=== PATIENT | male | born 2000 | race Caucasian/White ===

== ENCOUNTER 2024-07-02 12:25 | Emergency (ER) | payer BC, MEDICAID ==
[~2024-07-02] VITALS: Ht 177.8 cm; Wt 70.0 kg
[2024-07-02 12:36] VITALS: TEMP 98.1
[2024-07-02] MEDS: ACETAMINOPHEN 500 MG TABLET PO ONE (16:05)
[2024-07-02] MEDS: PROPARACAINE HCL 0.5% 15 ML OPHTHALMIC SOLUTION OD ONE (16:05)
[2024-07-02] MEDS: SOD BORATE/BORIC AC/WATER/NACL 118 ML BOTTLE OD ONE (17:08)
[2024-07-02] MEDS ORDERED: MOXI3DRO25 OS (19:13)
[2024-07-02 19:19] VITALS: BP 99/67; PULSE 70; RESP 18; O2SAT 100
[2024-07-02] MEDS: PERTUSS(ACELL),DIPH,TET/PF 0.5 ML SYRINGE [ADULT] IM. ONE (19:46)
== END 2024-07-02 20:55 | disposition home or self-care (01) ==
LOC: EMS 12:36
DX: T15.02XA Foreign body in cornea, left eye, initial encounter (principal); F12.90 Cannabis use, unspecified, uncomplicated; W44.9XXA Unspecified foreign body entering into or through a natural orifice, initial encounter; Y93.89 Activity, other specified; Y92.89 Other specified places as the place of occurrence of the external cause; Y99.8 Other external cause status
CPT/HCPCS: 65220; 90715; 99284